=== PATIENT | male | born 1985 | race Caucasian/White ===

== ENCOUNTER → 2018-08-29 | Outpatient (CLI) | payer OTHER ==
[~2018-08-29] MED LIST: GADOBUTROL 10 ML VIAL IVP ONE
== END ==
LOC: FIMAGING 10:50
PROVIDERS: ATTEND Family Medicine
DX: R51 Headache (principal); R53.1 Weakness; H93.13 Tinnitus, bilateral; R42 Dizziness and giddiness
CPT/HCPCS: A9585